=== PATIENT | female | born 1985 | race Caucasian/White ===

== ENCOUNTER 2021-04-07 09:11 | Emergency (ER) | payer BC, OTHER ==
[~2021-04-07] VITALS: Ht 180.3 cm; Wt 89.6 kg
[2021-04-07] MEDS ORDERED: AMOX/K CLAV875 M1 PO (11:59)
[2021-04-07 12:03] VITALS: BP 127/71
== END 2021-04-07 12:03 | disposition home or self-care (01) | DRG 153 ==
LOC: ED 09:11
DX: J01.00 Acute maxillary sinusitis, unspecified (principal); Z20.822 Contact with and (suspected) exposure to COVID-19

== ENCOUNTER 2021-05-21 17:30 | Emergency (ER) | payer BC, OTHER ==
[~2021-05-21] VITALS: Ht 180.3 cm; Wt 100.0 kg
[~2021-05-21 17:30] MED LIST: AMOX/K CLAV875 M1 PO
[2021-05-21] MEDS ORDERED: NAPROXEN500 MG PO (19:56)
[2021-05-21] MEDS ORDERED: CYCLOBENZAPRINE10 MG PO (19:56)
[2021-05-21 20:20] VITALS: BP 140/76
== END 2021-05-21 20:20 | disposition home or self-care (01) | DRG 552 ==
LOC: ED 17:30
DX: M54.50 Low back pain, unspecified (principal)

== ENCOUNTER 2022-02-08 09:45 | Emergency (ER) | payer OTHER ==
[~2022-02-08] VITALS: Ht 180.3 cm; Wt 90.0 kg
[2022-02-08] VITALS (7 sets, daily range): BP systolic 115–134; BP diastolic 76–83
[~2022-02-08 09:45] MED LIST changes: +CYCLOBENZAPRINE10 MG PO; +NAPROXEN500 MG PO
[2022-02-08] MEDS ORDERED: DECADRON4 MG PO (11:22)
[2022-02-08] MEDS ORDERED: EC-NAPROXEN500 MG PO (11:22)
[2022-02-08] MEDS ORDERED: AMOX/K CLAV875 M1 PO (11:22)
== END 2022-02-08 11:30 | disposition home or self-care (01) ==
LOC: ED 09:45
DX: J02.9 Acute pharyngitis, unspecified (principal); R09.81 Nasal congestion; H74.8X9 Other specified disorders of middle ear and mastoid, unspecified ear

== ENCOUNTER 2022-09-21 07:25 | Emergency (ER) | payer OTHER ==
[2022-09-21] VITALS (7 sets, daily range): BP systolic 109–132; BP diastolic 71–79
[~2022-09-21] VITALS: Ht 182.9 cm; Wt 91.0 kg
[~2022-09-21 07:25] MED LIST changes: +DECADRON4 MG PO; +EC-NAPROXEN500 MG PO
[2022-09-21] MEDS ORDERED: ZOFRAN4 MG/TAB PO (08:48)
[2022-09-21] MEDS ORDERED: TAM75CAP PO (08:48)
== END 2022-09-21 09:51 | disposition home or self-care (01) ==
LOC: ED 07:25
DX: J10.1 Influenza due to other identified influenza virus with other respiratory manifestations (principal); Z20.822 Contact with and (suspected) exposure to COVID-19

== ENCOUNTER 2022-09-23 10:20 | Emergency (ER) | payer OTHER ==
[~2022-09-23] VITALS: Ht 182.9 cm; Wt 91.0 kg
[2022-09-23] VITALS (7 sets, daily range): BP systolic 111–132; BP diastolic 74–86
[~2022-09-23 10:20] MED LIST changes: +TAM75CAP PO; +ZOFRAN4 MG/TAB PO
[2022-09-23] MEDS ORDERED: CYCLOBENZAPRINE10 MG PO (15:04)
[2022-09-23] MEDS ORDERED: MOTRIN800 MG PO (15:04)
== END 2022-09-23 15:27 | disposition home or self-care (01) ==
LOC: ED 10:20
DX: M54.50 Low back pain, unspecified (principal)

== ENCOUNTER 2024-07-02 18:05 | Emergency (ER) | payer SELFPAY ==
[2024-07-02] VITALS (7 sets, daily range): BP systolic 117–133; BP diastolic 76–93
[~2024-07-02] VITALS: Ht 182.9 cm; Wt 92.0 kg
[~2024-07-02 18:05] MED LIST changes: +MOTRIN800 MG PO
[2024-07-02] MEDS ORDERED: PHENAZOPYRIDINE HCL 100 MG/TAB PO ONE (18:20)
[2024-07-02 18:40] LABS: URINE BILIRUBIN - DIPSTICK Negative (NEGATIVE); URINE BLOOD DIPSTICK Large (NEGATIVE); URINE GLUCOSE - DIPSTICK Negative (NEGATIVE); URINE KETONE Negative (NEGATIVE); URINE NITRITE - DIPSTICK Negative (Negative); URINE PH 8.5 (4.5-8.0); URINE PROTEIN - DIPSTICK 100 mg/dL (NEG-TRACE); URINE SPECIFIC GRAVITY 1.025
[2024-07-02 18:41] LABS: URINE COLOR Yellow; URINE LEUK ESTERASE Small (NEGATIVE); URINE RBC >100 RBC/hpf (0-5); URINE WBC >100 WBC/hpf (0-5)
[2024-07-02 18:42] LABS: URINE BACTERIA FEW hpf
[2024-07-02] MEDS ORDERED: PHENAZOPYRIDIN100 M1 PO (18:50)
[2024-07-02] MEDS ORDERED: KEFLEX500 MG PO (18:53)
[2024-07-02] MEDS ORDERED: CEPHALEXIN MONOHYDRATE 500 MG/CAP PO ONE (19:35)
== END 2024-07-02 19:37 | disposition home or self-care (01) | DRG 690 ==
LOC: ED 18:05
PROVIDERS: Family Medicine
DX: N39.0 Urinary tract infection, site not specified (principal); B96.20 Unspecified Escherichia coli [E. coli] as the cause of diseases classified elsewhere